=== PATIENT | female | born 1995 | race Caucasian/White ===

== ENCOUNTER 2021-11-30 10:02 | Emergency (ER) | payer SELFPAY ==
[~2021-11-30] VITALS: Ht 152.4 cm; Wt 98.0 kg
[2021-11-30 10:10] VITALS: BP 157/98
--- NOTE | 2021-11-30 10:34 | PHYS DOC ---
Past History Past Medical History: No Pertinent History Past Surgical History: Other Additional Past Surgical Histo: "rib surgery as an " Smoking: Non-smoker Alcohol Use: None Drug Use: None General Adult EDM: Chief Complaint: DIARRHEA HPI: HPI: Patient is a 26-year-old female that presents today with diarrhea for 1 week. Patient states that 1 week ago she started experiencing diarrhea where she has multiple loose stools on a daily basis, diarrhea is also associated with some upper abdominal cramping. Patient denies nausea or vomiting, dysuria, vaginal bleeding vaginal discharge, or possible . Patient states that she ate out approximately 3 times between Friday and Friday last week, and does not report anybody else in the group that she ate out with has any issues. Review of Systems: Review of Systems: Constitutional: Denies fever or chills Eyes: Denies change in visual acuity HENT: Denies nasal congestion or sore throat Respiratory: Denies cough or shortness of breath Cardiovascular: Denies chest pain or edema GI: Denies abdominal pain, nausea, vomiting, bloody stools or diarrhea : Denies dysuria Musculoskeletal: Denies back pain or joint pain Integument: Denies rash Neurologic: Denies headache, focal weakness or sensory changes Endocrine: Denies polyuria or polydipsia Lymphatic: Denies swollen glands Psychiatric: Denies depression or anxiety Physical Exam: PE: Constitutional: Well developed, well nourished, no acute distress, non-toxic appearance. [] HENT: Normocephalic, atraumatic, bilateral external ears normal, oropharynx moist, no oral exudates, nose normal. [] Eyes: PERRLA, EOMI, conjunctiva normal, no discharge. [] Neck: Normal range of motion, no tenderness, supple, no stridor. [] Cardiovascular:Heart rate regular rhythm, no murmur [] Lungs & Thorax: Bilateral breath sounds clear to auscultation [] Abdomen: Round, tenderness located over the epigastric area, bowel sounds are hyperactive, no masses noted Skin: Warm, dry, no erythema, no rash. [] Back: No tenderness, no CVA tenderness. [] Extremities: No tenderness, no cyanosis, no clubbing, ROM intact, no edema. [] Neurologic: Alert and oriented X 3, normal motor function, normal sensory function, no focal deficits noted. [] Psychologic: Affect normal, judgement normal, mood normal. [] Current Patient Data: Labs: Laboratory Tests Test 11/30/21 10:28 11/30/21 10:38 11/30/21 10:41 Urine Collection Type Unknown Urine Color Yellow Urine Clarity Hazy Urine pH 6.5 Urine Specific [place] 1.025 Urine Protein 100 mg/dl Urine Glucose (UA) Neg mg/dL Urine Ketones (Stick) Neg mg/dL Urine Blood Trace Urine Nitrite Neg Urine Bilirubin Neg Urine Urobilinogen Dipstick 0.2 mg/dL Urine Leukocyte Esterase Trace Urine RBC 0 /HPF Urine WBC 1-4 /HPF Urine Squamous Epithelial Cells Many /LPF Urine Bacteria Few /HPF Urine Hyaline Casts Occ /HPF Urine Mucus Slight /LPF Bedside Urine HCG, Qualitative hcg negative White Blood Count 10.4 x10^3/uL Red Blood Count 4.80 x10^6/uL Hemoglobin 14.2 g/dL Hematocrit 41.8 % Mean Corpuscular Volume 87 fL Mean Corpuscular Hemoglobin 30 pg Mean Corpuscular Hemoglobin Concent 34 g/dL Red Cell Distribution Width 13.6 % Platelet Count 279 x10^3/uL Neutrophils (%) (Auto) 72 % Lymphocytes (%) (Auto) 22 % Monocytes (%) (Auto) 4 % Eosinophils (%) (Auto) 2 % Basophils (%) (Auto) 1 % Neutrophils # (Auto) 7.5 x10^3uL Lymphocytes # (Auto) 2.2 x10^3/uL Monocytes # (Auto) 0.5 x10^3/uL Eosinophils # (Auto) 0.2 x10^3/uL Basophils # (Auto) 0.1 x10^3/uL Sodium Level 138 mmol/L Potassium Level 4.2 mmol/L Chloride Level 104 mmol/L Carbon Dioxide Level 26 mmol/L Anion Gap 8 Blood Urea Nitrogen 12 mg/dL Creatinine 0.6 mg/dL Estimated GFR (Cockcroft-Gault) 120.8 BUN/Creatinine Ratio 20 Glucose Level 127 mg/dL Calcium Level 9.0 mg/dL Total Bilirubin 0.4 mg/dL Aspartate Amino Transf (AST/SGOT) 19 U/L Alanine Aminotransferase (ALT/SGPT) 64 U/L Alkaline Phosphatase 82 U/L Total Protein 7.7 g/dL Albumin 3.5 g/dL Albumin/Globulin Ratio 0.8 Lipase 154 U/L Current Medications Medications (Trade) Dose Ordered Sig/Rosalie Route PRN Reason Start Time Stop Time Status Last Admin Dose Admin Iohexol (Omnipaque 300 Mg/ml) 75 ml 1X ONCE IV 11/30/21 11:30 11/30/21 11:31 DC 11/30/21 11:30 Info (Do NOT chart on this entry -- for MONITORING) 1 each PRN DAILY PRN MC SEE COMMENTS 11/30/21 11:30 12/02/21 11:29 Vital Signs: Vital Signs Date Time Temp Pulse Resp B/P (MAP) Pulse Ox O2 Delivery O2 Flow Rate FiO2 11/30/21 10:10 98.4 89 16 157/98 (117) 100 Room Air EKG: EKG: [] Radiology/Procedures: Radiology/Procedures: REASON: abdominal cramping and diarrhea PROCEDURE: CT ABD PELV W/ IV CONTRST ONLY Exam Date: 11/30/2021 11:[address] ABDOMEN+PELVIS W Indication: Reason: abdominal cramping and diarrhea / Spl. Instructions: / History: . TECHNIQUE: CT examination of the abdomen and pelvis was performed following the administration of nonionic intravenous contrast. One or more of the following dose reduction techniques were utilized: *Automated exposure control (AEC) *Adjustment of mA and/or kV according to patient size *Use of iterative reconstruction technique *CT scan done according to ALARA, or ALARA/IMAGE GENTLY FINDINGS: The visualized lung bases are clear. The liver, gallbladder, spleen, pancreas, adrenal glands and kidneys are normal. Urinary bladder is normal in appearance. There is no bowel obstruction or inflammation. The appendix is normal. No significant atherosclerotic calcifications are seen. No lymphadenopathy or ascites is seen. Osseous structures are intact. IMPRESSION: No evidence of acute intra-abdominal pathology. Electronically signed by: Mychal Aldridge MD (11/30/2021 11:48 AM) [id number] [] Heart Score: C/O Chest Pain: No Risk Factors: Risk Factors: DM, Current or recent (<one month) smoker, HTN, HLP, family history of CAD, obesity. Risk Scores: Score 0 - 3: 2.5% MACE over next 6 weeks - Discharge Home Score 4 - 6: 20.3% MACE over next 6 weeks - Admit for Clinical Observation Score 7 - 10: 72.7% MACE over next 6 weeks - Early Invasive Strategies Course & Med Decision Making: Course & Med Decision Making Pertinent Labs and Imaging studies reviewed. (See chart for details) 1205 reassessment of patient shows her in no acute distress no increased work of breathing no severe abdominal pain patient appears comfortable. Patient was informed that her CT scan did not show any acute process, her urine did show a urinary tract infection we will treat her with Macrobid for this for the over the next 7 days she is to follow-up with her primary care physician or one of the listed clinics on the community resource list for further management of her diarrhea if that should continue. Did suggest patient following a clear liquid diet over the next 24 hours and then advance as tolerated. Patient verbalized understanding of this agreeable to plan of care. Jose J Disclaimer: Jose J Disclaimer: This electronic medical record was generated, in whole or in part, using a voice recognition dictation system. Departure Departure: Impression: Primary Impression: Diarrhea Qualified Codes: R19.7 - Diarrhea, unspecified Additional Impression: UTI (urinary tract infection) Qualified Codes: N30.00 - Acute cystitis without hematuria Disposition: HOME / SELF CARE / HOMELESS Condition: STABLE Referrals: PCP,NO (PCP) Patient Instructions: Cardiac Diet, [id number], Diarrhea, Urinary Tract Infection Additional Instructions: Clear liquid diet for the next 24 hours and then advance as tolerated Macrobid 1 tablet twice daily for 7 full days for urinary tract infection Follow-up with your primary care physician if your diarrhea does not subside. Return to the emergency department if you start having abdominal pain that localizes to the right lower quadrant, you develop a fever, if you are unable to take any by mouth fluids. Scripts Nitrofurantoin Monohyd/M-Cryst (MACROBID 100 MG CAPSULE) 100 Mg Capsule 100 CAP PO BID for UTI for 7 Days, #14 CAP Prov: LUPIS TANG [employer] 11/30/21 LUPIS TANG [employer] Nov 30, 2021 10:34
[2021-11-30 10:58] LABS: BASO # 0.1 x10^3/uL (0.0-0.2); BASO % 1 % (0-3); EOS # 0.2 x10^3/uL (0.0-0.7); EOS % 2 % (0-3); HEMATOCRIT 41.8 % (36.0-47.0); HEMOGLOBIN 14.2 g/dL (12.0-15.5); LYMPH # 2.2 x10^3/uL (1.0-4.8); LYMPH % 22 % (24-48); MEAN CORPUSCULAR HEMOGLOBIN 30 pg (25-35); MEAN CORPUSCULAR HGB CONC 34 g/dL (31-37); MEAN CORPUSCULAR VOLUME 87 fL (79-100); MONO # 0.5 x10^3/uL (0.0-1.1); MONO % 4 % (0-9); NEUT # 7.5 x10^3uL (1.8-7.7); NEUT % 72 % (31-73); PLATELET COUNT 279 x10^3/uL (140-400); RED CELL DISTRIBUTION WIDTH 13.6 % (11.5-14.5); WHITE BLOOD COUNT 10.4 x10^3/uL (4.0-11.0)
[2021-11-30 11:08] LABS: CREATININE 0.6 mg/dL (0.6-1.0); GFR 120.8; POTASSIUM 4.2 mmol/L (3.5-5.1)
[2021-11-30 11:09] LABS: BACTERIA,URINE FEW /HPF (0-FEW); CLARITY,URINE HAZY; COLOR,URINE YELLOW; GLUCOSE,URINE NEG (NEG); HYALINE CASTS, URINE OCC /HPF; NITRITE,URINE NEG (NEG); RBC,URINE 0 /HPF (0-2); SQUAMOUS EPITHELIAL CELL,UR MANY /LPF; UROBILINOGEN,URINE 0.2 mg/dL (0.2 mg/dL)
[2021-11-30 11:13] LABS: ALBUMIN 3.5 g/dL (3.4-5.0); ALBUMIN/GLOBULIN RATIO 0.8 (1.0-1.7); TOTAL BILIRUBIN 0.4 mg/dL (0.2-1.0); TOTAL PROTEIN 7.7 g/dL (6.4-8.2)
[2021-11-30] MEDS: IOHEXOL 300 MG/ML 75 ML VIAL. IV ONE (11:30)
[2021-11-30] MEDS ORDERED: CONTRAST GIVEN. MC PRN (11:30)
--- NOTE | 2021-11-30 11:50 | RAD ---
Exam Date: 11/30/2021 11:[address] ABDOMEN+PELVIS W Indication: Reason: abdominal cramping and diarrhea / Spl. Instructions: / History: . TECHNIQUE: CT examination of the abdomen and pelvis was performed following the administration of no nionic intravenous contrast. One or more of the following dose reduction techniques were utilized: *Automated exposure control (AEC) *Adjustment of mA and/or kV according to patient size *Use of iterative reconstruction technique *CT scan done according to ALARA, or ALARA/IMAGE GENTLY FINDINGS: The visualized lung bases are clear. The liver, gallbladder, spleen, pancreas, adrenal glands and kidneys are normal. Urinary bladder is normal in appearance. There is no bowel obstruction or inflammation. The appendix is normal. No significant atherosclerotic calcifications are seen. No lymphadenopathy or ascites is seen. Osseous structures are intact. IMPRESSION: No evidence of acute intra-abdominal pathology. Electronically signed by: Mychal Aldridge MD (11/30/2021 11:48 AM) [id number]
[2021-11-30] MEDS ORDERED: NITR100C62 PO (12:15)
== END 2021-11-30 12:50 | disposition home or self-care (01) ==
LOC: ER 10:02
DX: N30.00 Acute cystitis without hematuria (principal); R19.7 Diarrhea, unspecified
CPT/HCPCS: 36415; 74177; 80053; 81001; 81025; 83690; 85025; 87086; 99285; Q9967